=== PATIENT | female | born 1980 | race Caucasian/White ===

== ENCOUNTER 2019-04-24 14:04 | Emergency (ER) | payer MEDICAID ==
[~2019-04-24] VITALS: Ht 162.6 cm; Wt 68.0 kg
[2019-04-24 14:35] VITALS: BP 125/83
== END 2019-04-24 15:53 | disposition home or self-care (01) ==
LOC: ER 14:04
DX: S40.862A Insect bite (nonvenomous) of left upper arm, initial encounter (principal); S40.861A Insect bite (nonvenomous) of right upper arm, initial encounter; W57.XXXA Bitten or stung by nonvenomous insect and other nonvenomous arthropods, initial encounter; Y93.89 Activity, other specified; Y92.89 Other specified places as the place of occurrence of the external cause; Y99.8 Other external cause status